=== PATIENT | female | born 1990 | race Caucasian/White ===

== ENCOUNTER 2022-02-11 10:46 | Day surgery (SDC) | payer MEDICAID, SELFPAY ==
[2022-02-11] VITALS (11 sets, daily range): BP systolic 98–108; BP diastolic 58–74; PULSE 61–82; RESP 16–18; TEMP 36.3–36.8; O2SAT 96–100; BMI 30.7
--- NOTE | 2022-02-11 11:04 | EKG12_ITS ---
Test Reason : PRE OP Blood Pressure : / mmHG Vent. Rate : 062 BPM Atrial Rate : 062 BPM P-R Int : 128 ms QRS Dur : 094 ms QT Int : 442 ms P-R-T Axes : 009 037 035 degrees QTc Int : 448 ms Normal sinus rhythm Normal ECG No previous ECGs available Confirmed by FELIX PINA, DALY ([id number]), publishing editor OCHOA GARCIA ([id number]) on 02/14/2022 10:52:44 AM Referred By: Angelita Daniel Confirmed By:GIULIA WASHINGTON MD
[2022-02-11 11:27] LABS: Internal QC Validated? YES +Cl - CLEAR BKGD; Pregnancy, Urine Negative Negative
[2022-02-11] MEDS: Lactated Ringers 1,000 ML 15 ML IV ×2 (11:27→15:31)
--- NOTE | 2022-02-11 12:20 | GALL_PTH ---
PATIENT: DANA ANDREW LOC: [facility] [place] U#:[id number] AGE/SX: 31/F ROOM: RE02/11/[address]: Dr. Angelita Daniel MD : 1990 BED: DIS: 02/11/2022 SPEC #: [id number] RECD: 02/11/22 14:56 STATUS: MIRIAM RENatali #: [id number] JESUS: 02/11/22 12:[address]: Angelita Daniel DEPT: SURGICAL PATHOLOGY RECD BY: Jeovany Parikh ENTERED: 02/12/22 09:39 SP TYPE: JAY ELLIOTT DR: JOHNATHON Clement Tissues: Gallbladder, NOS Procedures: Surgery Specimen Level III HEADER OPERATION: Laparoscopic cholecystectomy with IOC PRE-OP DIAGNOSIS: Biliary dyskinesia, chronic cholecystitis TISSUE SUBMITTED: Gallbladder and contents MICROSCOPIC DIAGNOSIS Gallbladder, cholecystectomy: Cholesterolosis, chronic cholecystitis and cholelithiasis. AM:cain 02/13/2022 MICROSCOPIC DESCRIPTION Slides are reviewed. GROSS DESCRIPTION Received is one container labeled with the patient's name and designated gallbladder. The specimen consists of a gallbladder measuring 5.5 x 2.5 x 1 cm. The external surface is smooth and glistening. Focally, it is granular, hemorrhagic and contains cautery artifact. The lumen of the gallbladder contains yellow-green mucoid bile and one garcia, crystalline calculus measuring 1.1 cm in diameter. The mucosa is bile-stained and without any mass lesions. The gallbladder wall averages 0.2 cm in thickness and is free of mass lesions. Shipping Weigher sections of the gallbladder and the cystic duct at margin of resection are submitted in one cassette. / AM:cain 02/12/2022 TC:3 CPT: 52305
[2022-02-11] MEDS: Cefazolin 2 GM in 0.9% Normal Saline 100 ML IV (12:37)
[2022-02-11] MEDS: Bupivacaine 0.25%-Epi/Pf 1:200,000 10 ML (12:56)
--- NOTE | 2022-02-11 13:00 | RAD_ITS ---
STUDY: INTRAOPERATIVE CHOLANGIOGRAM.. REASON FOR EXAM: Female, 31 years old. Laparoscopic cholecystectomy. FLUOROSCOPY TIME (if supplied): ( 7 seconds ) minutes/seconds. 4 images were submitted. TECHNIQUE: An intraoperative cholangiogram was performed by the surgeon. Imaging was submitted. COMPARISON: None. FINDINGS: The intra and extrahepatic biliary ducts are not dilated. A tiny round well-defined filling defect is seen in the midportion of the common bile duct most likely representing an air bubble. Free flow of contrast is seen into the duodenum. RAD/Cholangiogram/ O R,Initial IMPRESSION: Findings as well as tiny air bubble in the common bile duct. Free flow of contrast into the duodenum. Electronically Signed: Niraj Tineo MD at 15:41 EST ,
--- NOTE | 2022-02-11 13:41 | OP.PCM_ITS ---
Report of Operation Date of Procedure: 02/11/22 Pre-Operative Diagnosis: abnormal HIDA scan, RUQ abdominal pain Post-Operative Diagnosis: same Surgery/Procedure Performed:: laparoscopic cholecystectomy with cholangiograms Description of Surgical Findings:: possible air bubble in cholangiograms otherwise good flow into duodenum Surgeon: Angelita Daniel Type of Anesthesia: General Anesthesiologist: Miladis Olivier Specimen's removed: gallbladder and contents Estimated Blood Loss (mL): < 10 ml Fluids Replaced: 800 ml RL Description of Procedure: After informed consent was given, the patient was brought to the Operating Room. Appropriate time out protocol was followed. The patient was placed in the supine position. The patient was then placed under general endotracheal anesthesia by the anesthesia provider. The abdomen was then prepped with a s terile surgical skin preparation and sterile surgical drapes were placed. An area superior to the umbilical dimple was grasped with penetrating clamps and the skin and subcutaneous tissues were infiltrated with 0.25% marcaine with epinephrine. A skin incision was then made with a 15 blade scalpel. The anterior abdominal wall was elevated and a Veress needle was carefully inserted into the intraabdominal cavity. It was checked to be in the proper position with a normal saline drop test. A CO2 pneumoperitoneum was then created. Once this was achieved, then the Veress needle was removed and an 11mm trocar was placed in its stead. A 10mm laparoscope was then inserted into the trocar and careful attention was directed to the intraabdominal contents. There was no evidence of injury to any intraabdominal organs from insertion of the Veress needle or the trocar. Under direct visualization, a 5mm subxiphoid trocar and two lateral 5mm right subcostal trocars were placed. The skin and subcutaneous tissues at these sites were infiltrated with 0.25% marcaine with epinephrine prior to placement of these trocars. Attention was then directed to the right upper quadrant of the abdomen. Graspers were placed in the lateral trocars to grasp the distal aspect of the gallbladder and direct it cephalad and to grasp the gallbladder at Tello?s pouch and direct it laterally. Dissection then began on the proximal gallbladder continuing down to the area of the triangle of Calot to bluntly dissect out the cystic duct. The neck of the gallbladder was identified and blunt dissection continued to dissect out a segment of the cystic duct. A clip was then placed on the neck of the gallbladder. A small ductotomy was then made. A Ranfac catheter was brought in through a separate skin in cision and placed into the cystic duct. An intraoperative cholangiogram was performed under fluoroscopy. The xray revealed no lesions in the common bile duct (rounded filling defect - may be air bubble versus stone), arborization of the biliary tree, and good flow into the duodenum. The Ranfac catheter was then removed and two clips were placed proximal to the ductotomy and the cystic duct was then transected. The cystic artery was visualized and bluntly isolated and then two clips were placed proximally and one clip distally and then it was transected between the proximal and distal clips. The gallbladder was then from the liver bed using electrocautery. Once from the liver bed, it was placed in an Endobag. It was brought out via the umbilical port. It was then forwarded to pathology for analysis. The liver bed was carefully examined. There was no evidence of bile leakage or bleeding. The cystic duct stump and cystic artery stump had their clips intact and there was no evidence of bile leakage or bleeding. The remainder of the abdomen was grossly normal. The CO2 was released and all trocars removed intact. The periumbilical fascia was approximated with a yvypre-or-vvsbf 0 vicryl suture. All skin incision were closed with 4-0 monocryl in a subdermal fashion. Cavilol and Steristrips were used to reinforce the skin closure. Sterile dressings were applied to all wounds. Sponge, needle and instrument count was verified and correct at time of skin closure. The patient was extubated and brought to the Recovery Room in stable condition. Complications none note Admit VTE Documentation VTE Present on Admission: Yes VTE Mechan Device Prophylaxis: SCD's
--- NOTE | 2022-02-11 14:06 | EX.PCM.DISCH ---
Discharge Instructions Follow Up Care Test Results: Test results from this visit will be discussed in further detail at your follow-up appointment, if applicable. Discharge Plan Admission Attending Provider: Angelita Daniel Primary Care Provider: Dahiana Silver NP Instructions Additional Instructions / Restrictions: Recommended pain control regimen - May take 600 mg ibuprofen (Motrin) and then in 3-4 hours, may take 650 mg acetaminophen (Tylenol), then in 3-4 hours may take 600 mg ibuprofen, then in 3-4 hours may take 650 mg acetaminophen and so on for 2-3 days May take narcotic pain medication for pain that is not controlled by above and at night for comfort through the night Leave dressings in place May shower, do not scrub in the areas of the dressings as they may unravel. Do not soak - no tub baths/swimming No lifting/pushing/pulling greater than 20 pounds for two weeks Regular diet as tolerated, drink plenty of fluids. Avoid carbonated beverages for a few days as this will cause abdominal bloating and thus discomfort after our surgery. Please call my office for an appointment to see the physician diver assistant in 1-2 weeks. Office number is If any questions, please call my office at and ask the slitting machine operator for the general surgery nurses desk Discharge Orders/Prescriptions Prescriptions: New hydrocodone-acetaminophen 5-325 mg tablet 1 tab PO Q8H 5 Days Qty: 15 0RF No Action etonogestrel-ethinyl estradiol [NuvaRing] 0.12-0.015 mg/24 hr Ring 1 vag ring VAGINAL .[id number] Referrals / Follow Up: Dahiana Silver NP, [employer] [Primary Care Provider] - Disposition Disposition (needs filled in before D/C Order can be placed): Home, Self Care
[2022-02-11] MEDS: HYDROcodone Bitartrate/Apap 5/325 Tablet PO (16:40)
== END 2022-02-11 17:07 | disposition home or self-care (01) ==
LOC: SDC 10:51 → AC 10:51
PROVIDERS: Anesthesiology; PCP Nurse Practitioner Family; Referring Provider Surgery; Visit Provider Surgery
PROC: (CPT 47610; principal; 2022-02-11 12:00)
DX: K80.10 Calculus of gallbladder with chronic cholecystitis without obstruction (principal)
CPT/HCPCS: 47563; 00790; 74300; 76000; 81025; 88304; 93005; J7120; J2405